=== PATIENT | female | born 1970 | race American Indian/Alaskan Native ===

== ENCOUNTER 2019-02-06 15:14 | Outpatient (CLI) | payer OTHER ==
--- NOTE | 2019-02-06 15:52 | XRay Report ---
CHEST 2 VIEWS 1537 INDICATION / CLINICAL INFORMATION: RIB PAIN([phone]). COMPARISON: None available. FINDINGS: SUPPORT DEVICES: None. HEART / MEDIASTINUM: No significant abnormality. LUNGS / PLEURA: No significant pulmonary or pleural abnormality. No pneumothorax. ADDITIONAL FINDINGS: No significant additional findings. IMPRESSION: No significant acute abnormality Signer Name: King Day MD Signed: 02/06/2019 3:48 PM Workstation Name: [id number]
== END 2019-02-06 15:15 | disposition home or self-care (01) ==
LOC: XRAY 15:14
PROVIDERS: ATTEND Internal Medicine
DX: R07.81 Pleurodynia (principal)
CPT/HCPCS: 71046